=== PATIENT | female | born 1985 | race Asian ===

== ENCOUNTER 2020-12-03 10:42 | Emergency (ER) | payer BC ==
[~2020-12-03] VITALS: Ht 157.5 cm; Wt 50.8 kg
[2020-12-03] MEDS ORDERED: ACETAMINOPHEN500 MG PO (11:09)
[2020-12-03] MEDS ORDERED: ZANAFLEX4 MG PO (11:09)
[2020-12-03] MEDS ORDERED: PREDNISONE20 MG PO (11:09)
[2020-12-03] MEDS ORDERED: IBUPROFEN IB200 MG PO (11:09)
[2020-12-03] MEDS ORDERED: ACETAMINOPHEN 325 MG TAB PO ONE (11:15)
[2020-12-03] MEDS ORDERED: IBUPROFEN 200 MG TAB PO ONE (11:15)
[2020-12-03] MEDS ORDERED: IBUPROFEN 600 MG TAB ONE (11:21)
[2020-12-03] MEDS ORDERED: ACETAMINOPHEN 325 MG TAB ONE (11:21)
== END 2020-12-03 11:23 | disposition home or self-care (01) ==
LOC: FSED 10:57
DX: M54.2 Cervicalgia (principal); M43.6 Torticollis
CPT/HCPCS: 81003; 99283